=== PATIENT | female | born 1960 | race Caucasian/White ===

== ENCOUNTER → 2018-03-08 | Outpatient (CLI) | payer OTHER ==
--- NOTE | 2018-03-08 16:58 | XR ---
EXAMINATION TYPE: XR foot complete RT DATE OF EXAM: 03/08/2018 COMPARISON: NONE HISTORY: Heel pain for 6 months TECHNIQUE: 3 views FINDINGS: There is a plantar calcaneal spur. I see no fracture nor dislocation. There are no erosions . IMPRESSION: Calcaneal spurring. No fracture seen.
== END | disposition home or self-care (01) ==
LOC: RADXRYALE 16:34
PROVIDERS: ATTEND Internal Medicine
DX: M77.31 Calcaneal spur, right foot (principal)

== ENCOUNTER 2019-04-17 03:17 | Emergency (ER) | payer OTHER ==
--- NOTE | 2019-04-17 04:06 | ED ---
Chest Pain HPI - General Chief Complaint: Chest Pain Stated Complaint: Chest pain/Arm pain Time Seen by Provider: 04/17/19 03:29 Source: patient Mode of arrival: ambulatory Limitations: no limitations - History of Present Illness MD Complaint: chest pain Onset/Timin -: days(s) Onset: during rest Pain Location: substernal Pain Radiation: LUE, back Severity: moderate Quality: aching Consistency: constant Improves With: nothing Worsens With: other (Coughing or laughing) Treatments Prior to Arrival: none - Related Data Previous Rx's Medication Instructions Recorded Ibuprofen [Motrin] 600 mg PO Q8HR PRN #20 tab 04/17/19 Methocarbamol [Robaxin-750] 750 mg PO TID PRN #30 tablet 04/17/19 Allergies Allergy/AdvReac Type Severity Reaction Status Date / Time No Known Allergies Allergy Verified 04/17/19 03:27 Review of Systems ROS Statement: Those systems with pertinent positive or pertinent negative responses have been documented in the HPI. ROS Other: All systems not noted in ROS Statement are negative. Constitutional: Denies: fever, chills Respiratory: Denies: cough, dyspnea Cardiovascular: Reports: chest pain. Denies: palpitations, orthopnea, edema, syncope Gastrointestinal: Denies: abdominal pain, nausea, vomiting Genitourinary: Denies: dysuria, hematuria Musculoskeletal: Denies: back pain Skin: Denies: rash Neurological: Denies: headache, weakness, numbness Past Medical History Past Medical History: GERD/Reflux, Hyperlipidemia, Thyroid Disorder Additional Past Medical History / Comment(s): Diverticulitis. History of Any Multi-Drug Resistant Organisms: None Reported Past Surgical History: Tonsillectomy Additional Past Surgical History / Comment(s): cyst removed from head Past Psychological History: No Psychological Hx Reported Smoking Status: Former smoker Past Alcohol Use History: None Reported Past Drug Use History: None Reported General Exam Limitations: no limitations General appearance: alert, in no apparent distress Head exam: Present: atraumatic, normocephalic Eye exam: Present: normal appearance. Absent: scleral icterus, conjunctival injection ENT exam: Present: normal oropharynx Neck exam: Present: normal inspection Respiratory exam: Present: normal lung sounds bilaterally, chest wall tenderness. Absent: respiratory distress, wheezes, rales, rhonchi, stridor, accessory muscle use Cardiovascular Exam: Present: regular rate, normal rhythm, normal heart sounds. Absent: systolic murmur, diastolic murmur, rubs, gallop GI/Abdominal exam: Present: soft. Absent: distended, tenderness, guarding, rebound, rigid, mass Extremities exam: Present: normal inspection, normal capillary refill. Absent: pedal edema, calf tenderness Back exam: Present: normal inspection. Absent: CVA tenderness (R), CVA tenderness (L) Neurological exam: Present: alert Skin exam: Present: warm, dry, intact, normal color. 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
[2019-04-17 04:12] LABS: ALT 24 U/L (4-34); AST 24 U/L (14-36); African American GFR (CKD) >90 (>60 ml/min/1.73 sqM); Albumin 4.1 g/dL (3.5-5.0); Alkaline Phosphatase 110 U/L (38-126); Anion Gap 7 mmol/L; Blood Urea Nitrogen 14 mg/dL (7-17); Calcium 9.3 mg/dL (8.4-10.2); Carbon Dioxide 27 mmol/L (22-30); Chloride 105 mmol/L (98-107); Glucose 112 mg/dL (74-99); Magnesium 1.7 mg/dL (1.6-2.3); Non-African American GFR(CKD) 88 (>60 ml/min/1.73 sqM); Potassium 4.2 mmol/L (3.5-5.1); Sodium 139 mmol/L (137-145); Total Bilirubin 0.3 mg/dL (0.2-1.3); Total Protein 7.1 g/dL (6.3-8.2)
--- NOTE | 2019-04-17 04:16 | XR ---
EXAMINATION TYPE: XR chest 2V DATE OF EXAM: 04/17/2019 COMPARISON: 05/23/2010 HISTORY: Syncope. Chest pain TECHNIQUE: FINDINGS: Heart and mediastinum are normal. Lungs are clear of consolidation. There are no hilar mass es. There are chest leads. Bony thorax is intact. IMPRESSION: No active cardiopulmonary disease. Normal heart. No change.
[2019-04-17 04:30] LABS: D-Dimer 0.31 mg/L FEU (<0.60); INR 0.8 (<1.2); Prothrombin Time 9.4 sec (9.0-12.0)
[2019-04-17 04:38] LABS: Amylase 47 U/L (30-110)
[2019-04-17 04:47] LABS: Basophils # (A) 0.1 k/uL (0-0.2); Basophils % (A) 1 %; Eosinophils # (A) 0.3 k/uL (0-0.7); Eosinophils % (A) 3 %; HCT 39.3 % (34.0-46.0); HGB 13.6 gm/dL (11.4-16.0); Lymphocytes # (A) 1.6 k/uL (1.0-4.8); Lymphocytes % (A) 15 %; MCHC 34.6 g/dL (31.0-37.0); MCV 86.8 fL (80.0-100.0); Mean Platelet Volume 10.6; Monocytes % (A) 9 %; Neutrophils # (A) 7.5 k/uL (1.3-7.7); Neutrophils % (A) 70 %; Platelet Count 260 k/uL (150-450); RBC 4.54 m/uL (3.80-5.40); RDW 12.5 % (11.5-15.5); WBC 10.7 k/uL (3.8-10.6)
[2019-04-17] MEDS ORDERED: MORPHINE SULFATE 4 MG/ML SYRINGE IV STA (04:55)
[2019-04-17] MEDS ORDERED: ONDANSETRON 4 MG/2 ML VIAL IVP STA (05:15)
[2019-04-17] MEDS ORDERED: DIAZEPAM 5 MG/ML 2 ML INJ IVP STA (06:05)
[2019-04-17 06:08] LABS: Large Platelets Present
[2019-04-17 09:17] VITALS: BP 137/98; PULSE 84; RESP 16; TEMP 97.9
== END 2019-04-17 10:28 | disposition home or self-care (01) ==
LOC: EC 03:17
DX: R07.89 Other chest pain (principal); Z87.891 Personal history of nicotine dependence
CPT/HCPCS: 36415; 93005; 85379; 80053; 82150; 83690; 83735; 84484; 85025; 85610; 85730; 71046; 99285; 96374; 96375 ×2; J2270; J3360; J2405

== ENCOUNTER → 2021-08-13 | Outpatient (CLI) | payer OTHER ==
--- NOTE | 2021-08-13 12:06 | XR ---
EXAMINATION TYPE: XR ankle complete RT DATE OF EXAM: 08/13/2021 COMPARISON: NONE HISTORY: Pain FINDINGS: Three views of the ankle demonstrate the ankle mortise to be intact and symmetric. The joint spaces are preserved. The osseous structures are intact. Large plantar calcaneal spur. IMPRESSION: 1. No definite acute fracture or dislocation, if symptoms persist follow-up study in 7 to 10 days wou ld be suggested. 2. Large plantar calcaneal spur.
--- NOTE | 2021-08-13 12:34 | XR ---
EXAMINATION TYPE: XR foot complete RT DATE OF EXAM: 08/13/2021 COMPARISON: NONE HISTORY: Pain TECHNIQUE: Three views are submitted. FINDINGS: The osseous structures are intact. There is no acute fracture or dislocation. There is narrowing t he first MTP joint. Metallic ring involving the second digit. Mild diffuse osteopenia. Large plantar calcaneal spur. IMPRESSION: 1. No acute fracture or dislocation. If symptoms persist, follow-up exam in 7 to 10 days could be ob tained. 2. Large plantar calcaneal spur 3. First MTP joint arthropathy
== END | disposition home or self-care (01) ==
LOC: RADXRYALE 10:50
PROVIDERS: ATTEND Internal Medicine
DX: M77.31 Calcaneal spur, right foot (principal); M12.871 Other specific arthropathies, not elsewhere classified, right ankle and foot

== ENCOUNTER → 2021-12-08 | Outpatient (CLI) | payer OTHER ==
--- NOTE | 2021-12-08 10:54 | XR ---
Right knee HISTORY: Pain, strain 3 days prior 3 views of the right knee Suprapatellar increased density may represent joint effusion. Bone mineralization is mildly reduced. Joint spaces and alignment are within normal limits, minimal marginal spurring in the medial compartm ent. No fracture or dislocation. IMPRESSION: Osteoarthritis, joint effusion. Knee MRI may be of benefit.
== END | disposition home or self-care (01) ==
LOC: RADXRYALE 10:08
PROVIDERS: ATTEND Internal Medicine
DX: M17.11 Unilateral primary osteoarthritis, right knee (principal)

== ENCOUNTER 2021-12-13 16:36 | Emergency (ER) | payer OTHER ==
[2021-12-13 17:14] VITALS: TEMP 98.5
[2021-12-13] MEDS ORDERED: IBUPROFEN 800 MG TAB PO STA (17:23)
--- NOTE | 2021-12-13 17:27 | ED ---
Lower Extremity Injury HPI - General Chief Complaint: Extremity Injury, Lower Stated Complaint: rt foot injury Time Seen by Provider: 12/13/21 17:18 Source: patient, family, RN notes reviewed, old records reviewed Mode of arrival: ambulatory Limitations: no limitations - History of Present Illness Initial Comments: 61-year-old female presents to the emergency room with complaints of rolling her ankle last night. She states that she has increased pain with ambulation. She also has a history of chronic plantar fasciitis which she has been using Motrin and ice for with no relief. MD Complaint: ankle injury -: days(s) (1) Type of Injury: eversion Place: street/outdoors Severity scale (1-10): 10 Improves With: nothing Context: other (rolled ankle) Other Symptoms: other (Chronic plantar fasciitis) - Related Data Previous Rx's Medication Instructions Recorded Ibuprofen [Motrin] 600 mg PO Q8HR PRN #20 tab 04/17/19 methocarbamoL [Robaxin-750] 750 mg PO TID PRN #30 tablet 04/17/19 Allergies Allergy/AdvReac Type Severity Reaction Status Date / Time No Known Allergies Allergy Verified 12/13/21 17:14 Review of Systems ROS Statement: Those systems with pertinent positive or pertinent negative responses have been documented in the HPI. ROS Other: All systems not noted in ROS Statement are negative. Past Medical History Past Medical History: GERD/Reflux, Hyperlipidemia, Thyroid Disorder Additional Past Medical History / Comment(s): Diverticulitis. History of Any Multi-Drug Resistant Organisms: None Reported Past Surgical History: Tonsillectomy Additional Past Surgical History / Comment(s): cyst removed from head Past Psychological History: No Psychological Hx Reported Smoking Status: Never smoker Past Alcohol Use History: Occasional Past Drug Use History: None Reported General Exam Limitations: no limitations General appearance: alert, in no apparent distress Head exam: Present: atraumatic Respiratory exam: Absent: respiratory distress, accessory muscle use Cardiovascular Exam: Present: regular rate Extremities exam: Present: normal capillary refill Right Ankle exam: Present: tenderness, swelling (minimal). Absent: abrasion, laceration, ecchymosis, deformity Foot/Toe exam: Present: tenderness (plantar pain with flexion arch). Absent: swelling, abrasion, laceration, ecchymosis, deformity, crepitus, erythema, ca lcaneal tenderness, tenderness at base of 5th metatarsal Neurovascular tendon exam: Present: no vascular compromise. Absent: abnormal cap refill, extremity cold to touch, foot drop Neurological exam: Present: alert, oriented X3 Psychiatric exam: Present: normal affect, normal mood Skin exam: Present: warm, dry, normal color. Absent: cyanosis, diaphoretic, pallor Course Vital Signs 12/13/21 12/13/21 17:11 18:38 Temperature 98.5 F Pulse Rate 96 67 Respiratory 20 16 Rate Blood Pressure 115/54 148/66 O2 Sat by Pulse 98 96 Oximetry Medical Decision Making - Medical Decision Making X-ray negative for fracture. There is no evidence soft tissue swelling or bruising. Patient does have full range of motion. She is neurovascularly intact. She will be directed to continue Tylenol and/or Motrin as needed for pain. Rest, ice and elevated at home and wear ice wrap for compression. Ice bottles to relieve discomfort from plantar fasciitis. She was given a referral to podiatry for her chronic foot pain. Case discussed with Dr. Kaiser Disposition Clinical Impression: Ankle pain, right Disposition: HOME SELF-CARE Condition: Good Instructions (If sedation given, give patient instructions): Ankle Sprain (ED) Additional Instructions: Rest, ice, elevate and continue using Tylenol and/or Motrin as needed for pain. Use the frozen ice bottle for a plantar fasciitis. Follow-up with podiatry as needed. Is patient prescribed a controlled substance at d/c from ED?: No Referrals: Rossi Singletary MD [Primary Care Provider] - 1-2 days Wayne Schmidt DPM [STAFF PHYSICIAN] - 1-2 days Time of Disposition: 18:15
--- NOTE | 2021-12-13 17:43 | XR ---
EXAMINATION TYPE: XR ankle complete RT DATE OF EXAM: 12/13/2021 COMPARISON: NONE HISTORY: Pain and swelling TECHNIQUE: 3 views FINDINGS: There is soft tissue swelling over the lateral malleolus. There is plantar and Achilles kary caneal spurring. No fracture seen. Ankle joint space is fairly well-maintained. IMPRESSION: Soft tissue swelling. No fracture seen.
[2021-12-13 18:40] VITALS: BP 148/66; PULSE 67; RESP 16
== END 2021-12-13 18:39 | disposition home or self-care (01) ==
LOC: EC 16:36
DX: M25.571 Pain in right ankle and joints of right foot (principal); K21.9 Gastro-esophageal reflux disease without esophagitis; E78.5 Hyperlipidemia, unspecified; E07.9 Disorder of thyroid, unspecified; Z79.899 Other long term (current) drug therapy; X50.1XXA Overexertion from prolonged static or awkward postures, initial encounter
CPT/HCPCS: 99283